=== PATIENT | female | born 1945 | race African-American/Black ===

== ENCOUNTER 2019-01-06 22:57 | Inpatient (IN) | payer OTHER ==
[~2019-01-06] VITALS: Ht 152.4 cm; Wt 63.0 kg
--- NOTE | ~2019-01-06 | HC ---
[facility] [place] [address] CONSULTATION Name: MELISSAJALEN DARCY Room #: 243-P ADM IN M.R.#: [id number] Admission: 01/07/19 Attend Phys: Talha Overton MD Discharge: Date of : 47 Report #: [id number] THIS REPORT FOR: //name// CC: Juanis Overton DATE OF SERVICE: 01/07/2019 HISTORY OF PRESENT ILLNESS: The patient is a 73-year-old -Jordanian female, left-handed, admitted with expressive aphasia. No note of upper and lower extremity involvement. She was evaluated and has been given TPA. CT of the head was negative. She did undergo a CTA, no evidence of obvious intracranial abnormality or high grade stenosis. She is currently in the intensive care unit being monitored post-TPA. We are seeing her in rehabilitation medicine consultation. Main deficits appeared to be speech at this time. PAST MEDICAL HISTORY: Asthma, chronic back problems, reconstructive surgery on her feet. MEDICATIONS: Please see the full medication listing. This includes vitamins, herbals, and supplements per report. ALLERGIES: No known drug allergies. HABITS: No history of tobacco or alcohol abuse. SOCIAL HISTORY: Apparently lives in a house by herself and has involved daughters, but this is per the patient's history and she had difficulty with describing this or telling me this. REVIEW OF SYSTEMS: Did not offer any current complaints of chest pain, shortness of breath, abdominal discomfort or focal upper or lower extremity pain complaints or focal weakness. No note of any bowel or bladder problems. Nursing notes that the patient passed her swallow evaluation, although the report is pending. PHYSICAL EXAMINATION: GENERAL: She is a pleasant 73-year-old slender -Jordanian female in no obvious distress. VITAL SIGNS: Last recorded temperature 98.3, pulse 73, respirations 13, blood pressure is 148/65. The patient is alert. HEENT: Appeared to be benign. NEUROLOGIC: Facies are symmetric. She does have significant difficulty with word retrieval, word finding, which delay in her response. She does follow basic commands, however. Functional range of motion of both upper and lower [facility] [address] [place] [address] CONSULTATION Name: JALEN TORRES Room #: 243-P [facility] IN ..#: [id number] Admission: 01/07/19 Attend Phys: Talha Overton MD Discharge: Date of : 47 Report #: [id number] extremities. Strength appeared to be a grade 4-4+/5. DTRs are trace to 1. She does reasonably well with [id number]-iw-kvlo. No calf swelling. She has not been up with therapies as of yet. ASSESSMENT: A 73-year-old -Jordanian female, left-handed, with the following problem list: 1. 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 Note that Neurology is consulted. 2. History of asthma. 3. Chronic back pain. PLAN: Therapies are to evaluate as per post-stroke protocol. She is currently being monitored in the intensive care unit. We will be glad to follow along regarding her rehab therapy needs. By: [id number] Reginald Arizmendi MD /nt
[~2019-01-06 22:57] MED LIST: ALBUTEROL SULF8.5 GM INH; CYCLOBENZAPRINE5 MG PO; GUAIFENESIN-CODE5 ML PO; IBUPROFEN 600600 M1 PO; IBUPROFEN 800800 MG PO; LIDODERM 5%1 PATC1 TRANSDERM; NYQUIL D COLD295 ML PO; PERCOCET PO; PREDNISONE50 MG PO; ZPAK PO
--- NOTE | 2019-01-06 23:07 | NUR ---
CODE STROKE ACTIVATED AT 0218
--- NOTE | 2019-01-06 23:10 | NUR ---
PATIENT TO CT AT THIS TIME
[2019-01-06] MEDS ORDERED: VITAMIN B-12500 MCG PO (23:18)
[2019-01-06] MEDS ORDERED: LIORESAL 10 MG10 MG PO (23:18)
[2019-01-06] MEDS ORDERED: PAMELOR25 MG PO (23:19)
[2019-01-06] MEDS ORDERED: ERGOCALCIF50000 UNIT PO (23:19)
[2019-01-06] MEDS ORDERED: OMEPRAZOLE20 M2 PO (23:20)
[2019-01-06] MEDS ORDERED: ONDANSETRON HCL4 M2 PO (23:20)
[2019-01-06] MEDS ORDERED: PERCOCET 10-321 EACH PO (23:21)
[2019-01-06] MEDS ORDERED: MIRALAX17 GM PO (23:22)
[2019-01-06] MEDS ORDERED: KONSYL PSYLLIU3.4 GM PO (23:22)
[2019-01-06] MEDS ORDERED: SERTRALINE HCL50 MG PO (23:23)
[2019-01-06] MEDS ORDERED: SENNA8.6 MG PO (23:23)
[2019-01-06 23:51] LABS: HEMATOCRIT 39.9 % (37.0-47.0); HEMOGLOBIN 13.4 gm/dL (12.0-15.0); MCH 30.7 pg (26.0-34.0); MCHC 33.7 g/dL (28.0-37.0); MCV 91.1 fL (80.0-100.0); RBC 4.38 mil/uL (4.20-5.00); RDW 13.3 % (10.5-14.5); WBC 7.3 thou/uL (4.0-11.0)
[2019-01-07] VITALS (32 sets, daily range): BP systolic 112–164; BP diastolic 60–88
[2019-01-07 00:01] LABS: ANION GAP 10 mmol/L (7-16); BUN 14 mg/dL (7-18); CALCIUM 9.5 mg/dL (8.5-10.1); CHLORIDE 104 mmol/L (98-107); CO2 26 mmol/L (21-32); GLUCOSE 101 mg/dL (74-106); POTASSIUM 3.7 mmol/L (3.5-5.1); SODIUM 140 mmol/L (136-145)
--- NOTE | 2019-01-07 00:04 | NUR ---
PATIENT HAS WORD-FINDING ISSUES. PATIENT WAS HAVING DIFFICULTY SPEAKING AND IS SPEAKING IN A WHISPER, WHICH DAUGHTERS STATE IS ABNORMAL. INITIAL PHYSICIAN NIHSS MAX 2. LAST KNOWN NORMAL IS 1999. ER PHYSICIAN SPEAKING WITH NUEROLOGY AT THIS TIME. JTT HAS IMPROVEMENT SINCE ARRIVAL PER PHYSICIAN
[2019-01-07 00:05] LABS: PROTIME 10.5 Seconds (9.3-11.4)
[2019-01-07 00:07] LABS: POC CA IONIZED 4.3 mg/dL (4.5-5.3); POC CREATININE 0.9 mg/dL (0.6-1.3); POC HEMOGLOBIN 13.6 g/dL (12.0-15.0); POC POTASSIUM 3.8 mmol/L (3.5-5.1)
[2019-01-07 00:11] LABS: TROPONIN-I <0.06 ng/mL (<0.06)
--- NOTE | 2019-01-07 00:26 | NUR ---
PATIENT HAS DECIDED TO PROCEED WITH TPA ADMINISTRATION. PATIENT PASSED SWALLOW SCREEN WITH WATER, CRACKERS AND APPLESAUCE
[2019-01-07 00:32] LABS: URINE BILIRUBIN NEGATIVE (Negative); URINE BLOOD NEGATIVE (Negative); URINE CLARITY CLEAR; URINE COLOR YELLOW; URINE GLUCOSE-RANDOM* NEGATIVE (Negative); URINE KETONES NEGATIVE (Negative); URINE LEUKOCYTES-REFLEX TRACE (Negative); URINE NITRITE-REFLEX NEGATIVE (Negative); URINE PROTEIN (DIPSTICK) NEGATIVE (Negative); URINE UROBILINOGEN 0.2 E.U./dl (0.2-1.0)
[2019-01-07 00:41] LABS: AMP/METHAMP Negative (Negative); BARBITURATES Negative (Negative); BENZODIAZEPINES Negative (Negative); COCAINE Negative (Negative); METHADONE Negative (Negative); OPIATES Negative (Negative); PCP Negative (Negative)
--- NOTE | 2019-01-07 00:56 | NUR ---
EARRINGS AND NECKLACE SENT HOME WITH DAUGHTERS. PATIENT REQUESTED TO KEEP HER CELL PHONE AT BEDSIDE
--- NOTE | 2019-01-07 01:24 | NUR ---
DAUGHTERS DECIDED TO GO HOME: JENNIFER: [phone] MARC: [phone] PATIENT PRIVACY CODE GIVEN TO DAUGHTERS.
--- NOTE | 2019-01-07 04:36 | NUR ---
Pt arrived to ICU Room 243 from ER at about 0255. A/O x 4. RA. Calm and coorperative. Aphasic. 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 NIH score 1. SR on monitor. Denies pain or any other discomfort. Bed alarm on. Fall precautions initiated. Call light within reach. Will continue to monitor.
--- NOTE | 2019-01-07 06:37 | NUR ---
Pt a/o x 4. RA. VSLeonardo. Passed RN swallowing test in ER. No difficulty swallowing noted since arrival to ICU. Aphasic. NIH score 1. Bed alarm on. Fall precautions maintained. Call light within reach. Will continue to monitor.
--- NOTE | 2019-01-07 08:10 | EKG ---
[address] [employer] [place] [address] ELECTROCARDIOGRAM REPORT Name: JALEN TORRES Room #: 243-P ADM IN M.R.#: [id number] Admission: 01/07/19 Attend Phys: Talha Overton MD Discharge: Date of : 47 Report #: [id number] THIS REPORT FOR: //name// [facility] ED Test Date: 2019-01-06 Test Time: 23:37:51 Pat Name: JALEN TORRES Department: Room: 243 Gender: F Chip Crusher Operator: harpreet : 1945 Requested By: Paul Granger Order Number: [id number] MD: Aurelio Mena Measurements Intervals [place] Rate: 76 P: 34 WA: 169 QRS: -31 QRSD: 81 T: 17 QT: 407 QTc: 458 Interpretive Statements Sinus rhythm Leftward axis Compared to ECG 12/10/2014 19:42:58 T-wave abnormality no longer present Electronically Signed On 01-07-2019 8:10:29 SPEEDOMETER INSPECTOR by Aurelio Mena [email or web address] <ELECTRONICALLY SIGNED> By: Aurelio Mena MD, [facility] [id number] Aurelio Mena MD, [facility] /EPI
--- NOTE | 2019-01-07 15:08 | NUR ---
Case reviewed and discussed with the care team. Pt is currently in ICU s/p TPA per stroke protocal. Pt being evaluated by ST today for swallow and aphasia. Swallow was normal. Pt is strugging with word finding and verbal expression. Her dtr Nereida was here earlier and is her emergency contact. Nursing reports dtr to be very supportive and involved. Pt lives alone and was independent prior to admission. Message left for dtr Nereida. Pt is resting this afternoon. PT/OT/5N to eval tomorrow. Will follow along for recommendations regarding her rehab and dc planning needs.
--- NOTE | 2019-01-07 15:41 | NUR ---
0930 SPOKE WITH JIGNESH FROM [facility] [employer] [facility] [employer] VIA TELEPHONE REGARDING PT [employer] STIMULATOR. AV VERIFIED STIMULATOR IS APPROVED FOR MRI TEST. 1400 DR. SEGOVIA UPDATED APPROVED MRI STIMULATOR. 1500 SPOKE WITH MRI REGARDING MRI ORDER AND STIMULATOR- UNFORTUNATELY MRI CAN NOT BE PERFORMED D/T MRI MACHINE NOT HAVING THE ATTACHMENT FOR PT WITH STIMULATORS. [address] SEGOVIA MRI UNCAPABLE OF SCANNING PT WITH STIMULATORS.
[2019-01-08] VITALS (14 sets, daily range): BP systolic 112–151; BP diastolic 62–85
[2019-01-08 04:32] LABS: ALBUMIN 3.4 g/dL (3.4-5.0); ANION GAP 9 mmol/L (7-16); BUN 12 mg/dL (7-18); CALCIUM 9.1 mg/dL (8.5-10.1); CHLORIDE 106 mmol/L (98-107); CHOLESTEROL 212 mg/dL (<200); CO2 26 mmol/L (21-32); CREATININE 0.8 mg/dL (0.6-1.0); GLUCOSE 98 mg/dL (74-106); HDL CHOLESTEROL 54 mg/dL (>40); LDL CHOLESTEROL 142 mg/dL (<100); SGOT 13 U/L (15-37); SGPT 21 U/L (30-65); SODIUM 141 mmol/L (136-145); TC:HDL 3.9 Ratio (Not establshd); TOTAL BILIRUBIN 0.3 mg/dL (<0.1-1.0); TOTAL PROTEIN 6.8 g/dL (6.4-8.2); TRIGLYCERIDE 83 mg/dL (<150); VLDL 17 mg/dL (<40)
[2019-01-08 04:38] LABS: SERUM ASSESSMENT Clear
--- NOTE | 2019-01-08 04:58 | NUR ---
ASSUMED CARE @ 1900 01/07/19, PT ASSESSMENT AND VSS COMPLETE PER ICU, TPA POST ADMINISTRATION PROTOCOL. PT ALERT AND ORIENTED X4, PT ABLE TO FOLLOW COMMANDS, AT 1915 01/07/19-0100 01/08/19 PT NIH SCORE (PARTIAL ASSESSMENT) WAS 1 AND 0200 01/07/19 24 HOURS POST-TPA ADMINISTRATION PT NIH SCORE (FULL ASSESSMENT) WAS 2. PT STILL HAS SOME MILD EXPRESSIVE APHASIA STILL PRESENT, BUT WITH PATIENCE RN IS ABLE TO UNDERSTAND WHAT THE PT IS TRYING TO COMMUNICATE. PT IS AFEBRILE, BP STABLE. PT ON RA SATS IN THE HIGH 90'S. PT ON HEART HEALTHY DIET, PT HAD LOW APPETITE THROUGH OUT THE SHIFT. PT ABLE TO VOID ON THE BEDPAN NO COMPLICATIONS NOTED. FAMILY WAS HERE DURING THE SHIFT TO VISIT WITH PT. FALL PRECAUTIONS IN PLACE, BLEEDING PRECAUTIONS IN PLACE. PLAN OF CARE- CONT TO MONITOR.
--- NOTE | 2019-01-08 08:52 | NUR ---
ASSUMED CARE OF PT AT 0700 THIS SHIFT. PT HAS BEEN COOPERATIVE THIS MORNING, DENIED ANY PAIN. PT WAS DROWSY THIS MORNING, SLEEP INTERRUPTED. NIH ASSESSMENT COMPLETED, EDUCATION WAS PROVIDED. PT IS CURRENTLY RESTING COMFORTABLY IN ROOM.
[2019-01-08 11:44] LABS: TSH 0.917 uIU/mL (0.358-3.740)
--- NOTE | 2019-01-08 12:21 | 2DMMODE ---
[facility] [place] [address] 2 D/M-MODE ECHOCARDIOGRAM Name: TORRESJALEN Room #: 243-P ADM IN M.R.#: [id number] Admission: 01/07/19 Attend Phys: Talha Overton MD Discharge: Date of : 47 Date of Service: 01/08/19 1220 Report #: [id number] THIS REPORT FOR: //name// APPROVED REPORT Study performed: 01/08/2019 09:20:22 EXAM: Comprehensive 2D, Doppler, and color-flow Echocardiogram Patient Location: ICU Room #: 243 Status: routine BSA: 1.55 HR: 72 bpm BP: 121/74 mmHg Rhythm: NSR Other Information Study Quality: Good Indications CVA/TIA Hypertension/HDD Echo Enhancing Agent Indication: Rule out Shunt Agent(s) / Amount(s) Used: Agitated Saline 7 cc 2D Dimensions RVDd: 27.94 mm IVSd: 10.23 (7-11mm) LVOT Diam: 20.80 (18-24mm) LVDd: 37.42 mm PWd: 11.20 (7-11mm) Ascending Ao: 34.44 (22-36mm) LVDs: 24.42 (25-40mm) Left Atrium: 29.85 (27-40mm) Aortic Root: 29.63 mm LV Single Plane 4CH: 60.09 % LV Single Plane 2CH: 60.68 % Volumes Left Atrial Volume (Systole) Single Plane 4CH: 18.87 mL Single Plane 2CH: 16.21 mL Aortic Valve AoV Peak Brian.: 1.23 m/s AO Peak Gr.: 6.07 mmHg [facility] [address] [place] [address] 2 D/M-MODE ECHOCARDIOGRAM Name: JALEN TORRES Room #: 243-P [facility] IN ..#: [id number] Admission: 01/07/19 Attend Phys: Talha Overton MD Discharge: Date of : 47 Date of Service: 01/08/19 1220 Report #: [id number] AO Mean Gr.: 2.85 mmHg AO V2 Mean: 0.79 m/s AO V2 VTI: 24.40 cm AI Vmax: 3.78 m/s AI Waldo: 1.84 m/s2 AI PHT: 594.16 ms Mitral Valve E/A Ratio: 0.6 MV Decel. Time: 342.00 ms MV E Max Brian.: 0.45 m/s MV A Brian.: 0.74 m/s MV PHT: 99.18 ms IVRT: 107.27 ms Pulmonary Valve PV Peak Brian.: 0.83 m/s PV Peak Gr.: 2.81 mmHg CO End Vmax: 1.15 m/s Pulmonary Vein P Vein S: 0.45 m/s P Vein A: 0.40 m/s P Vein D: 0.27 m/s P Vein A Dur.: 76.1 msec P Vein S/D Ratio: 1.67 Tricuspid Valve TR Peak Brian.: 2.13 m/s TR Peak Gr.: 18.20 mmHg Left Ventricle The left ventricle is normal size. There is normal LV segmental wall motion. Mild concentric left ventricular hypertrophy. The left ventricular systolic function is normal. The left ventricular ejection fraction is within the normal range. LVEF is 60%. Grade I - abnormal relaxation pattern. Right Ventricle The right ventricle is normal size. There is normal right ventricular wall thickness. The right ventricular systolic function is normal. Atria The left atrium size is normal. Atrial septal aneurysm is present with PFO. The right atrium size is normal. Aortic Valve The aortic valve is normal in structure[place] [address] 2 D/M-MODE ECHOCARDIOGRAM Name: JALEN TORRES DARCY Room #: 243-P [facility] IN [facility]#: [id number] Admission: 01/07/19 Attend Phys: Talha Overton MD Discharge: Date of : 47 Date of Service: 01/08/19 1220 Report #: [id number] regurgitation. Mitral Valve The mitral valve is normal in structure. Trace mitral regurgitation. Tricuspid Valve The tricuspid valve is normal in structure. Mild tricuspid regurgitation. Estimated PAP 21 mmHg. Pulmonic Valve The pulmonary valve is normal in structure. Mild pulmonic regurgitation. Great Vessels The aortic root is normal in size. IVC is normal in size and collapses >50% with inspiration. Pericardium There is no pericardial effusion. <Conclusion> The left ventricle is normal size. Mild concentric left ventricular hypertrophy. The left ventricular systolic function is normal. The right ventricle is normal size. The left atrium size is normal. Atrial septal aneurysm is present with PFO. Trace to mild aortic regurgitation. Trace mitral regurgitation. Mild tricuspid regurgitation. Estimated PAP 21 mmHg. <ELECTRONICALLY SIGNED> By: Quincy Summers MD 01/08/19 1220 1220 1220 Quincy Summers MD /INF
--- NOTE | 2019-01-08 12:45 | NUR ---
Music Grapher spoke with the pt at bedside this am. She would like her sister Tesha Chanel who lives out of town to be added to the spokesperson lists. Music Grapher spoke with both dtr Nereida and sister Tesha via conference call. CM role introduced. They had multiple questions for neuro. Call connected to Dr. Pop. Pt to have repeat CT today and well as therapy evals. Family report that the pt lives alone in a ranch style home with 2 steps to enter. She has laundry facilities in the basement (12steps). 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 The patient is able to answer assessment questions with one or two words, needing extra time for word finding and expression. Support provided. Possible transfer out of ICU today. Options for rehab, HH or outpt therapy discussed with family. They are discussing who can stay with her at dc if she is able to go home with outpt therapy. Pt's sister may try to come in town. Will follow to assist with dc planning efforts pending the care team recommendations.
--- NOTE | 2019-01-08 23:30 | NUR ---
PROVIDER NOTIFIED OF SIDED WEAKNESS
[2019-01-09 04:04] VITALS: BP 120/75
--- NOTE | 2019-01-09 04:40 | NUR ---
PATIENT IS ALERT AND ORIENTED. WITH NIH OF 1. PATIENT ONLY HAS SOME APHSIA. PATIENT DID HAVE WEAKNESS AT ONE POINT IN THE NIGHT BUT UPON REASSESSMENT WEAKNESS WAS GONE. PROVIDER WAS NOTIFED OF THE WEAKNESS. PATIENT IS ON ROOM AIR. PATIENT IS NSR ON TELE. PATIENT IS SBA. PATIENTS LBM WAS TODAY. PATIENT IS PENDING POSSIBLE REHAB TODAY. PATIENTS PAIN WAS TREATED WITH PAIN MEDCATION. PATIENT IS RESTING COMFORTABLEY IN BED. WCM. PATIENT IS PRGORESSING TO GOALS
[2019-01-09 07:04] VITALS: BP 128/68
--- NOTE | 2019-01-09 08:38 | NUR ---
PT SITTING UP IN BED EATING BREAKFAST. NO PAIN OR RESP DISTRESS. AM MEDS GIVEN.
[2019-01-09] MEDS ORDERED: ASA5UEC PO (11:59)
[2019-01-09] MEDS ORDERED: MUCINEX600 MG PO (11:59)
[2019-01-09] MEDS ORDERED: PEPCID20 MG PO (11:59)
[2019-01-09] MEDS ORDERED: ACETAMINOPHEN325 M1 PO (11:59)
[2019-01-09 12:21] VITALS: BP 121/76
--- NOTE | 2019-01-09 13:04 | NUR ---
FOLLOWING COMPLETION OF THERAPIES TODAY, PT HAS DEMONSTRATED THAT SHE HAS MADE SIGNIFICANT IMPROVEMENTS, AND THERAPY RECOMMENDATIONS ARE HOME WITH HH. THANK YOU FOR THIS REFERRAL.
--- NOTE | 2019-01-09 14:57 | NUR ---
PT RESTING IN BED NO PAIN AT PRESENT HAD PRN PAIN MED EARLIER. PT TO DISCHARGE 01/10/[address] HEALTH[address] DR HARGROVE AWARE OF DISCHARGE DATE. RX'S SIGNED ON CHART. PT CONT ON TELE MONITOR. XAVIER BENDER.
--- NOTE | 2019-01-09 15:11 | NUR ---
PATIENT TO MOVE TO ROOM 224 IN SENIOR SUITES. REPORT GIVEN TO NURSE. FAMILY IN ROOM. ALL BELONGINGS TO BE PACKED AND SENT WITH PATIENT. TELE MONITOR TO BE REMOVED.
--- NOTE | 2019-01-09 15:28 | NUR ---
ASAD reviewed chart and spoke with nursing and attending physician. Pt was transferred to 3 from ICU and is progressing towards goals for discharge. ASAD discussed case with 5N director of cardiac rehabilitation. Insurance denied inpt acute rehab. Recommendation made for pt to d/c home with HH or outpatient theray. ASAD met with pt and family at bedside to provide update and discuss discharge plan. Pt and family would prefer HH services. Options provided. 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 Pt agreeable to using another HH if ST is not able to start right away. ASAD confirmed pt's home address and phone number. Pt's PCP is Dr. Brett Maher. Pt's family will be able to provide transportation home tomorrow. Pt will have someone to stay with her starting tomorrow. ASAD updated pt's nurse and attending physician. traffic and transport planner to send referral to [facility] and other HH providers if needed. ASAD is following to assist as needed with discharge planning.
--- NOTE | 2019-01-09 15:36 | NUR ---
DISCHARGE PLANNING. ANTICIPATED DISCHARGE TO HOME TOMORROW. HOME HEALTH SERVICES RECOMMENDED AT DISCHARGE. PATIENT REQUESTING [facility]ING [facility], STATES WORKED FOR THEM IN THE PAST. CALL PLACED TO FELIPA SEWELL. MELODIE STATES THEY ARE AT CAPACITY IN PATIENTS AREA AND ARE UNABLE TO SERVICE PATIENT AT THIS TIME. CALL PLACED TO [facility]. STATES THEY ARE ABLE TO SERVICE PATIENTS HH NEEDS, WILL NEED TO RUN PROVIDER INFORMATION TO VERIFY COVERAGE. HH REFERRAL FAXED TO [facility]. [facility] TO CONTACT CM. UNIT SW AWARE.
--- NOTE | 2019-01-09 15:54 | NUR ---
PATIENT ARRIVED TO SENIOR SUITES AT 1545.PATIENT IS ALERT AND ORIENTED X4.PATIENT HAS SOME SLURRED SPEACH FROM PREVIOUS TIAS.FAMILY IS AT BEDSIDE.PATIENT WAS ORIENTED TO UNIT GIVEN CALL LIGHT, PHONE, AND PERSONAL BELONGINGS.
[2019-01-09 16:14] VITALS: BP 121/76
[2019-01-09 19:33] VITALS: BP 143/71
--- NOTE | 2019-01-10 04:46 | NUR ---
ASSUMED CARE OF PATIENT AT 1900. VSS. ASSESSMENT COMPLETED AT 1951 AND IS DOCUMENTED. PT CONTINUES TO HAVE EXPRESSIVE APHASIA. PRN PERCOCET GIVEN FOR C/O LOWER BACK PAIN WITH DESIRED EFFECT ACHIEVED. RIGHT FA PIV PATENT AND SALINE LOCKED. PT HAS SLEPT SOUNDLY THROUGHOUT THE NIGHT WITH NO S/S OF ACUTE DISTRESS NOTED OR REPORTED. PT CONTINUES TO SLEEP IN BED WITH BED LOCKED AND IN LOWEST POSTION. CALL LIGHT WITHIN REACH. TM.
--- NOTE | 2019-01-10 07:15 | NUR ---
THIS NURSE AGREES WITH THE ASSESSMENT AND NOTES OF THE BACKUP OPERATOR.
[2019-01-10 08:00] VITALS: BP 114/70
--- NOTE | 2019-01-10 11:42 | NUR ---
D/C PAPERWORK SIGNED, RX GIVEN, IV REMOVED BY SAP ANALYST, PT WAITING FOR DAUGHTER TO ARRIVE AROUND 1500, LET GRAIN UNLOADER MACHINE KNOW ETA. ENCOURAGED PT TO CALL ABOUT TEN MIN PRIOR TO D/C SO WE CAN FIND W/C. AN ASIDE SHE STATES SHE WOULDN'T NOT HAVE KNOWN ABOUT HER SPEECH ISSUE HAD SHE NOT RECEIVED A PHONE CALL. C/O OF NOT HAVING VISITING NURSES FOR HH YET SAW, IN CM NOTES, THEY WERE FULL. PT UNDERSTOOD
[2019-01-10 12:37] VITALS: BP 121/76
--- NOTE | 2019-01-10 15:47 | NUR ---
D/C IN W/C TO [facility] AROUND 1530 W/FAMILY TO AUTO AND HOME WITH HH, IV REMOVED
--- NOTE | 2019-01-12 09:54 | HC ---
[facility] [place] [address] CONSULTATION Name: JALEN TORRES Room #: 224-P [facility] IN Efe#: [id number] Admission: 01/07/19 Attend Phys: Talha Overton MD Discharge: 01/10/19 Date of : 47 Report #: [id number] THIS REPORT FOR: //name// CC: Juanis Overton DATE OF SERVICE: 01/07/2019 HISTORY OF PRESENT ILLNESS: This is a 73-year-old female patient who presented to the Emergency Room with speech difficulty and weakness on the left side. It was acute onset and as I understood from the Emergency Room the patient was within TPA window. I discussed with them and asked them to give an option of TPA to the family since the patient is left handed and she presented with speech difficulty as well as left-sided weakness. As I understand from the record, the TPA was given. This patient also had a CT angiogram to look for any intervention and the patient was not found to be an intervention candidate because no retrievable clot was demonstrated and after that she was admitted and Neurology consultation was requested this morning and was done this morning. The patient still appeared to be aphasic. I do not know what her baseline is, but she has what looks like receptive and expressive aphasic. She will say a few things, but then she will not be able to remember the word and will become frustrated. REVIEW OF SYSTEMS: Indicate that this patient had a spine stimulator. We called the [employer] and they indicated it is compatible with MRI, but our MRI cannot do the MRI because they do not have some special part, which is needed to do this, so we cannot do an MRI in this patient. She has no problem with TPA. She had no bleeding and no complication. Review of system is mostly positive for chronic back problems for which she has a stimulator. She also takes pain medication. That was a relevant 14-point review of systems. PAST MEDICAL HISTORY: Negative for any stroke. FAMILY HISTORY: Negative for any early age stroke. SOCIAL HISTORY: She does not smoke. PHYSICAL EXAMINATION: Neurological examination was carried out. It was mainly positive for the fact that this patient was still having aphasia. It was expressive and receptive aphasia. It was difficult to tell about visual deficit. Cardiac examinations appear noncontributory. No respiratory difficulty was noticed. Blood pressure is staying reasonably good at 130/81. She passed a swallow evaluation and she is getting p.o. IMPRESSION: The patient's clinical presentation is consistent with a cerebrovascular accident. [facility] [address] [place] [address] CONSULTATION Name: JAMES TORRESWHITLEY TAVERAS Room #: 224-P [facility] IN [facility].#: [id number] Admission: 01/07/19 Attend Phys: Talha Overton MD Discharge: 01/10/19 Date of : 47 Report #: [id number] RECOMMENDATIONS: It will be difficult to document the CVA until the CT scan shows. CVA appeared to be small enough that the CT scan may not show that, but the presumptive diagnosis will be still CVA. 1. Continue with PT and OT. 2. Evaluation and management of her vascular risk factor. 3. The patient will be started on aspirin as per TPA protocol. More than 50 minutes of time was spent taking care of this patient today and majority of that time was spent counseling and coordinating her care. I talked to multiple health wound care rn including ER doctor and the patient's nurses regarding this patient. <ELECTRONICALLY SIGNED> By: Pawel Pop MD 01/12/19 0954 1622 0121 Pawel Pop MD /nt
== END 2019-01-10 15:30 | disposition home health service (06) | DRG 63 ==
LOC: ER 22:57 → EROBS 01-07 02:14 → ICU 01-07 02:14 → 3W 01-08 17:50 → SICU 01-09 15:37
PROVIDERS: Emergency Medicine; Nurse Practitioner Acute Care; Psychiatry & Neurology Neuromuscular Medicine; ADMIT Internal Medicine
DX: I63.9 Cerebral infarction, unspecified (principal); J45.909 Unspecified asthma, uncomplicated; R47.01 Aphasia; M54.9 Dorsalgia, unspecified; G89.4 Chronic pain syndrome; Z60.2 Problems related to living alone; I10 Essential (primary) hypertension; Z79.891 Long term (current) use of opiate analgesic; Z79.82 Long term (current) use of aspirin; Z79.899 Other long term (current) drug therapy
CPT/HCPCS: 10078; 10879; 15001

== ENCOUNTER 2019-01-19 10:07 | Emergency (ER) | payer OTHER ==
[~2019-01-19] VITALS: Ht 165.1 cm; Wt 59.0 kg
[~2019-01-19 10:07] MED LIST changes: +ACETAMINOPHEN325 M1 PO; +ASA5UEC PO; +ERGOCALCIF50000 UNIT PO; +KONSYL PSYLLIU3.4 GM PO; +LIORESAL 10 MG10 MG PO; +MIRALAX17 GM PO; +MUCINEX600 MG PO; +OMEPRAZOLE20 M2 PO; +ONDANSETRON HCL4 M2 PO; +PAMELOR25 MG PO; +PEPCID20 MG PO; +PERCOCET 10-321 EACH PO; +SENNA8.6 MG PO; +SERTRALINE HCL50 MG PO; +VITAMIN B-12500 MCG PO
[2019-01-19 11:36] LABS: BASOPHILS 1.8 % (0.0-2.0); EOSINOPHILS 10.8 % (0.0-3.0); HEMOGLOBIN 13.6 gm/dL (12.0-15.0); LYMPHOCYTES 39.6 % (24.0-44.0); MCHC 33.2 g/dL (28.0-37.0); MCV 93.3 fL (80.0-100.0); MONOCYTES 10.2 % (1.0-8.0); PLATELET COUNT 200 thou/uL (150-400); POLYS 37.6 % (36.0-66.0); RDW 13.3 % (10.5-14.5); WBC 5.3 thou/uL (4.0-11.0)
[2019-01-19 11:44] LABS: CALCIUM 9.6 mg/dL (8.5-10.1); CREATININE 0.9 mg/dL (0.6-1.0); POTASSIUM 4.6 mmol/L (3.5-5.1)
[2019-01-19 12:31] VITALS: BP 136/80
--- NOTE | 2019-01-20 08:59 | EKG ---
[address] [address] ELECTROCARDIOGRAM REPORT Name: JALEN TORRES [facility] [id number] ������������������ Admission: 01/19/19 ������������������ Attend Phys: Discharge: 01/19/19 ������������������ Date of : 47 Report #: [id number] ����������������������������������������������������������������� [id number] THIS REPORT FOR: //name// [facility] ED Test Date: 2019-01-19 Test Time: 10:21:47 Pat Name: JALEN TORRES Department: Room: Gender: F Citrix Architect: KF : 1945 Requested By: Paul Granger Order Number: [id number] MD: Aurelio Mena Measurements Intervals [place] Rate: 80 P: 34 [place]: 150 QRS: -26 QRSD: 84 T: 25 QT: 387 QTc: 447 Interpretive Statements Sinus rhythm Borderline left axis deviation Compared to ECG 01/06/2019 23:37:51 No significant changes Electronically Signed On 01-20-2019 8:59:07 SCREWDOWN OPERATOR by Aurelio Mena [email or web address] ��������������������������������������������� <ELECTRONICALLY SIGNED> ���������������������������������������� By: Aurelio Mena MD, [facility] ��������������������������������������������� 01/20/19 0859 D: 02/1020 102 Aurelio Mena MD, FACC /EPI
== END 2019-01-19 12:32 | disposition home or self-care (01) ==
LOC: ER 10:07
PROVIDERS: Emergency Medicine
DX: R20.2 Paresthesia of skin (principal); R20.0 Anesthesia of skin; J45.909 Unspecified asthma, uncomplicated; M54.9 Dorsalgia, unspecified; G89.29 Other chronic pain

== ENCOUNTER → 2019-07-09 | Outpatient (CLI) | payer OTHER, SELFPAY | LOC: RAD 11:12 → SPEECH 12:11 | DX: R13.12 Dysphagia, oropharyngeal phase (principal); R47.02 Dysphasia ==

== ENCOUNTER 2021-08-12 16:19 | Emergency (ER) | payer OTHER ==
[~2021-08-12] VITALS: Ht 157.5 cm; Wt 63.5 kg
[2021-08-12 18:55] LABS: ABSOLUTE NEUTROPHILS 3.3 thou/uL (1.4-8.2); BASOPHILS 2.1 % (0.0-2.0); EOSINOPHILS 8.7 % (0.0-3.0); HEMATOCRIT 42.2 % (37.0-47.0); HEMOGLOBIN 13.7 gm/dL (12.0-15.0); LYMPHOCYTES 28.6 % (24.0-44.0); MCH 30.2 pg (26.0-34.0); MCHC 32.4 g/dL (28.0-37.0); MONOCYTES 10.9 % (1.0-8.0); PLATELET COUNT 178 thou/uL (150-400); POLYS 49.7 % (36.0-66.0); RBC 4.54 mil/uL (4.20-5.00); RDW 14.1 % (10.5-14.5); WBC 6.5 thou/uL (4.0-11.0)
[2021-08-12 19:06] LABS: CALCIUM 9.1 mg/dL (8.5-10.1); CREATININE 1.2 mg/dL (0.6-1.0); POTASSIUM 4.7 mmol/L (3.5-5.1)
[2021-08-12 19:36] VITALS: BP 170/92
== END 2021-08-12 19:42 | disposition home or self-care (01) ==
LOC: ER 16:19
PROVIDERS: Emergency Medicine
DX: M25.552 Pain in left hip (principal); J45.909 Unspecified asthma, uncomplicated; Z79.899 Other long term (current) drug therapy; V87.7XXA Person injured in collision between other specified motor vehicles (traffic), initial encounter; Y93.89 Activity, other specified; Y92.89 Other specified places as the place of occurrence of the external cause; Y99.8 Other external cause status